=== PATIENT | female | born 1960 | race Caucasian/White ===

== ENCOUNTER 2016-11-15 12:56 | Emergency (ER) | payer BC ==
[2016-11-15 13:02] VITALS: TEMP 97.8; BMI 25.4
[2016-11-15] MEDS ORDERED: KETOROLAC TROMETHAMINE 30 MG/1 ML VIAL IVPUSH ONE (16:26)
[2016-11-15] MEDS ORDERED: SODIUM CHLORIDE 1,000 ML IV STA ×2 (16:26→18:29)
[2016-11-15] MEDS ORDERED: METOCLOPRAMIDE HCL INJECTION 10 MG/2 ML VIAL IVPB ONE (16:26)
[2016-11-15] MEDS ORDERED: KETOROLAC TROMETHAMINE 30 MG/1 ML VIAL ONE (16:36)
[2016-11-15] MEDS ORDERED: METOCLOPRAMIDE HCL INJECTION 10 MG/2 ML VIAL ONE (16:36)
--- NOTE | 2016-11-15 16:49 | PDOC ---
[id number]: MIGRAINE Time Seen by Provider: 11/15/16 16:05 History Source: Patient Exam Limitations: No Limitations - History of Present Illness Initial Comments: 11/15/16 16:25 56-year-old female presents to the ED with complaints of right frontal and right temporal pressure for the past week. Patient states was seen by her ENT specialist Dr. Sanchez and was prescribed Nasonex which she states did not alleviate her symptoms. Patient states has not had a headache to this extent and denies any visual changes but does complain of her head feeling heavy without dizziness, nausea, neck pain, chest pain, or fever. Patient denies history of familial aneurysms, recent travel, recent head injury. Patient does state history of sinus surgery last year to the right side but denies any nasal congestion presently. Timing/Duration: getting worse Severity: moderate Associated Symptoms: reports: headaches Past History - Past Medical History Allergies/Adverse Reactions: Allergies Allergy/AdvReac Type Severity Reaction Status Date / Time No Known Drug Allergies Allergy Verified 11/15/16 13:02 contrast Allergy Severe Rash Uncoded 11/15/16 13:02 Home Medications: Ambulatory Orders Acetaminophen/Caffeine/Butalb [Fioricet -] 1 tab PO Q6H #28 tablet MDD 4 tabs Anemia: No Asthma: No Cancer: No Cardiac Disorders: No CVA: No COPD: No CHF: No Dementia: No Diabetes: No GI Disorders: No Disorders: Yes HTN: No Hypercholesterolemia: No Liver Disease: No Suicide Attempt (Hx): No Seizures: No Thyroid Disease: No - Surgical History Abdominal Surgery: Yes (hernia repair on 04/27/15 in ) Appendectomy: Yes Cholecystectomy: Yes - Immunization History Immunization Up to Date: Yes - Psycho/Social/Smoking Cessation Hx Anxiety: No Suicidal Ideation: No Smoking Status: No Smoking History: Never smoked Have you smoked in the past 12 months: No Number of Cigarettes Smoked Daily: 0 Hx Alcohol Use: No Drug/Substance Use Hx: No Substance Use Type: None Hx Substance Use Treatment: No Patient Lives Alone: No Lives with/in: spouse/SO Review of Systems - Review of Systems Able to Perform ROS?: Yes Constitutional: No: Symptoms Reported HEENTM: No: Symptoms Reported Respiratory: No: Symptoms reported Cardiac (ROS): No: Symptoms Reported ABD/GI: No: Symptoms Reported : No: Symptoms Reported Musculoskeletal: No: Symptoms Reported Integumentary: No: Symptoms Reported Neurological: Yes: Headache Endocrine: No: Symptoms Reported Hematologic/Lymphatic: No: Symptoms Reported *Physical Exam - Vital Signs Last Vital Signs Temp Pulse Resp BP Pulse Ox 97.8 F 100 H 20 134/78 100 11/15/16 12:59 11/15/16 12:59 11/15/16 12:59 11/15/16 12:59 11/15/16 12:59 - Physical Exam General Appearance: Yes: Nourished, Appropriately Dressed. No: Apparent Distress HEENT: positive: EOMI, BATSHEVA, TMs Normal, Pharynx Normal. negative: Pale Conjunctivae, Other (no temporal hypersensitivity with tapping) Neck: positive: Supple Respiratory/Chest: positive: Lungs Clear, Normal Breath Sounds. negative: Respiratory Distress, Accessory Muscle Use Cardiovascular: positive: Regular Rhythm, Tachycardia. negative: Murmur Gastrointestinal/Abdominal: positive: Soft. negative: Tenderness Integumentary: positive: Normal Color, Warm, Moist Neurologic: positive: Motor Strength 5/5 (ambulatory) ED Treatment Course - LABORATORY CBC & Chemistry Diagram: 11/15/16 16:33 11/15/16 16:33 - RADIOLOGY Radiology Studies Ordered: Category Date Time Status HEAD CT WITHOUT CONTRAST [CT] Stat CT Scan 11/15/16 16:26 Ordered Medical Decision Making - Medical Decision Making 11/15/16 16:28 Patient here with complaints of right frontal and temporal pressure for the past week and relieved with Nasonex as prescribed by her ENT specialist suggestive of sinusitis. Patient states history of sinus surgery last year. Patient on exam had no point tenderness or complaints of visual changes/fever. Will rule out intracranial pathology. Patient ordered for labs, Reglan, Toradol IV fluids and head CT. 11/15/16 18:19 Laboratory Tests 11/15/16 16:33 WBC 12.6 H D Hgb 14.6 D Hct 43.6 Plt Count 361 D Neutrophils % 67.7 CT of the head negative for acute findings including sinusitis. Asymmetry evaluate and states pain has subsided slightly but still complaining of right temporal discomfort. Patient will have an ESR added to rule out temporal arteritis and another bag of fluid 11/15/16 18:29 Laboratory Tests 11/15/16 16:33 Sodium 141 Potassium 3.5 Chloride 103 Carbon Dioxide 30 Anion Gap 8 BUN 13 Random Glucose 90 Calcium 9.0 AST 20 D ALT 36 D Albumin 4.3 *DC/Admit/Observation/Transfer Diagnosis at time of Disposition: Headache - Discharge Dispostion Disposition: HOME Condition at time of disposition: Improved - Prescriptions Prescriptions: Acetaminophen/Caffeine/Butalb [Fioricet -] 1 tab PO Q6H #28 tablet MDD 4 tabs - Referrals Referrals: Andrey Dupont MD [Primary Care Provider] - - Patient Instructions Printed Discharge Instructions: DI for Headache Additional Instructions: Please take medication as prescribed and follow up with Dr. Sanchez this week. If you experience any change in vision, weakness, slurred speech, difficulty walking, pain behind one eye, or any new or worsening symptoms, please return to the ER.
[2016-11-15 17:12] LABS: BASOPHIL 0.4 % (0-2.0); EOSINOPHIL 1.4 % (0-4.5); MCH 29.9 pg (25.7-33.7); MCHC 33.5 g/dl (32.0-36.0); MEAN CELL VOLUME 89.4 fl (80-96); MEAN PLT VOLUME 7.6 fl (7.5-11.1); NEUTROPHILS 67.7 % (42.8-82.8); PLATELET COUNT 361 K/MM3 (134-434); RDW 12.5 % (11.6-15.6); WHITE BLOOD COUNT 12.6 K/mm3 (4.0-10.0)
[2016-11-15 18:19] LABS: ALBUMIN 4.3 g/dl (3.4-5.0); ALK PHOS 99 U/L (45-117); ANION GAP 8 (8-16); BILIRUBIN,TOTAL 0.3 mg/dL (0.2-1.0); CO2 30 mmol/L (21-32); CREATININE 0.6 mg/dL (0.55-1.02); GLUCOSE,RANDOM 90 mg/dL (74-106); SGOT/AST 20 U/L (15-37); SGPT/ALT 36 U/L (12-78); TOT PROT 8.1 g/dl (6.4-8.2)
--- NOTE | 2016-11-15 19:40 | PDOC ---
*Physical Exam - Vital Signs Last Vital Signs Temp Pulse Resp BP Pulse Ox 97.8 F 100 H 20 134/78 100 11/15/16 12:59 11/15/16 12:59 11/15/16 12:59 11/15/16 12:59 11/15/16 12:59 - Physical Exam Comments: 11/15/16 19:39 Sign-out received from outgoing ER provider Lluvia. Pt interviewed and examined. Ancillary studies reviewed. Dispo pending ESR to r/o temporal arteritis. Will discharge home with Fioricet and close follow up with neuro. ED Treatment Course - LABORATORY CBC & Chemistry Diagram: 11/15/16 16:33 11/15/16 16:33 - ADDITIONAL ORDERS Additional order review: Laboratory Results 11/15/16 16:33 Sodium 141 Potassium 3.5 Chloride 103 Carbon Dioxide 30 Anion Gap 8 BUN 13 Creatinine 0.6 D Creat Clearance w eGFR > 60 Random Glucose 90 Calcium 9.0 Total Bilirubin 0.3 AST 20 D ALT 36 D Alkaline Phosphatase 99 Total Protein 8.1 Albumin 4.3 11/15/16 16:33 RBC 4.88 MCV 89.4 MCHC 33.5 RDW 12.5 MPV 7.6 Neutrophils % 67.7 Lymphocytes % 24.2 D Monocytes % 6.3 Eosinophils % 1.4 Basophils % 0.4 - Medications Given in the ED: ED Medications Discontinued Medications Generic Name Dose Route Start Last Admin Trade Name Freq PRN Reason Stop Dose Admin Sodium Chloride 1,000 mls @ 1,000 mls/hr 11/15/16 16:26 11/15/16 16:44 Normal Saline - IV 11/15/16 17:25 1,000 mls/hr ASDIR STA Administration Sodium Chloride 1,000 mls @ 1,000 mls/hr 11/15/16 18:29 11/15/16 18:50 Normal Saline - IV 11/15/16 19:28 1,000 mls/hr ASDIR STA Administration Ketorolac Tromethamine 30 mg 11/15/16 16:26 11/15/16 16:44 Toradol Injection - IVPUSH 11/15/16 16:27 30 mg ONCE ONE Administration Metoclopramide HCl 10 mg 11/15/16 16:26 11/15/16 16:44 Reglan Injection - IVPB 11/15/16 16:27 10 mg ONCE ONE Administration *DC/Admit/Observation/Transfer Diagnosis at time of Disposition: Headache Qualifiers: Headache type: other drug induced headache Intractability: not intractable Qualified Code(s): G44.40 - Drug-induced headache, not elsewhere classified, not intractable - Discharge Dispostion Disposition: HOME Condition at time of disposition: Stable Admit: No - Prescriptions Prescriptions: Acetaminophen/Caffeine/Butalb [Fioricet -] 1 tab PO Q6H #28 tablet MDD 4 tabs - Referrals Referrals: Andrey Dupont MD [Primary Care Provider] - - Patient Instructions Printed Discharge Instructions: DI for Headache Additional Instructions: Please take medication as prescribed and follow up with Dr. Sanchez this week. If you experience any change in vision, weakness, slurred speech, difficulty walking, pain behind one eye, or any new or worsening symptoms, please return to the ER.
[2016-11-15 20:55] VITALS: BP 132/70; PULSE 68
== END 2016-11-15 20:54 | disposition home or self-care (01) ==
LOC: JER 12:56
PROC: 3E0333Z Introduction of Anti-inflammatory into Peripheral Vein, Percutaneous Approach (ICD-10-PCS; principal; 2016-11-15)
PROC: 3E033GC Introduction of Other Therapeutic Substance into Peripheral Vein, Percutaneous Approach (ICD-10-PCS; 2016-11-15)
PROC: 3E0337Z Introduction of Electrolytic and Water Balance Substance into Peripheral Vein, Percutaneous Approach (ICD-10-PCS; 2016-11-15)
DX: G44.40 Drug-induced headache, not elsewhere classified, not intractable (principal)
CPT/HCPCS: 36415; 70450-TC; 80053; 85025; 85651; 99283-25

== ENCOUNTER 2017-05-12 10:53 | Emergency (ER) | payer BC ==
[2017-05-12 10:59] VITALS: BMI 25.4
--- NOTE | 2017-05-12 11:46 | PDOC ---
Attending Attestation - Resident Resident Name: Aldo Ledesma - ED Attending Attestation I have performed the following: I have examined & evaluated the patient, The case was reviewed & discussed with the resident, I agree w/resident's findings & plan, Exceptions are as noted - HPI HPI: 05/12/17 14:29 56y F presenting with epigastric pain that is bloating in nature since this morning. pt also endorses mild R sided headache c/.w her migraines. pt notes poor sleep hygeine typically only sleeping 3-4 hrs a night. no associtaed fever/ chills, diaphoersis, cp, sob, leg swelling, numbness/tingling/weakness. pts labs reviewed GENERAL: The patient is awake, alert, and fully oriented, Nontoxic - in no acute distress. HEAD: Normocephalic, atraumatic. EYES: extraocular movements intact, sclera anicteric, conjunctiva clear. ENT: Normal voice, Moist mucous membranes. NECK: Normal range of motion, supple LUNGS: Breath sounds equal, clear to auscultation bilaterally. No wheezes, no rhonchi, no rales. HEART: Regular rate and rhythm, normal S1 and S2 without murmur, rub or gallop. ABDOMEN: Soft, nontender, normoactive bowel sounds. No guarding, no rebound. . No CVA tenderness EXTREMITIES: Normal range of motion, no edema. No clubbing or cyanosis. No cords, erythema, or tenderness. NEUROLOGICAL: No facial assymetry, Normal speech, PSYCH: Normal mood, normal affect. SKIN: Warm, Dry, normal turgor, suspect GERD>gastritis pt feeling improved abd soft nontender. headache> likely migraine pt feeling improved after reglan/fluid hydration will hav pt fu with pmd return precautions were discussed I discussed the physical exam findings, ancillary test results and final diagnoses with the patient. I answered all of the patient's questions. The patient was satisfied with the care received and felt comfortable with the discharge plan and treatment plan. The patient will call their primary care physician within 24 hours to arrange follow-up and will return to the Emergency Department with any new, persistent or worsening symptoms. - Physicial Exam PE: 05/12/17 14:31 see above - Medical Decision Making 05/12/17 14:31 see above
[2017-05-12 12:09] LABS: BASOPHIL 0.9 % (0-2.0); EOSINOPHIL 2.1 % (0-4.5); MCH 30.5 pg (25.7-33.7); MCHC 33.9 g/dl (32.0-36.0); MEAN PLT VOLUME 8.1 fl (7.5-11.1); NEUTROPHILS 57.8 % (42.8-82.8); PLATELET COUNT 267 K/MM3 (134-434); RDW 12.2 % (11.6-15.6); WHITE BLOOD COUNT 7.4 K/mm3 (4.0-10.0)
[2017-05-12] MEDS ORDERED: IBUPROFEN 400 MG TABLET (FP) PO ONE (12:17)
[2017-05-12 12:18] LABS: URINE APPEARANCE CLEAR; URINE BILIRUBIN NEGATIVE (NEGATIVE); URINE BLOOD 1+ (NEGATIVE); URINE COLOR LTYELLOW; URINE GLUCOSE (UA) NEGATIVE (NEGATIVE); URINE KETONE NEGATIVE (NEGATIVE); URINE LEUK ESTERASE NEGATIVE (NEGATIVE); URINE NITRITE NEGATIVE (NEGATIVE); URINE PROTEIN NEGATIVE (NEGATIVE); URINE UROBILINOGEN NEGATIVE mg/dL (0.2-1.0)
[2017-05-12 12:19] LABS: URINE MUCUS RARE; URINE RBC 1 /hpf (0-3)
[2017-05-12 12:24] LABS: ALK PHOS 89 U/L (45-117); ANION GAP 6 (8-16); BILIRUBIN,DIRECT 0.2 mg/dL (0.0-0.2); BILIRUBIN,TOTAL 0.6 mg/dL (0.2-1.0); CALCIUM 9.4 mg/dL (8.5-10.1); CO2 29 mmol/L (21-32); CREATININE 0.6 mg/dL (0.55-1.02); GLUCOSE,RANDOM 94 mg/dL (74-106); SGOT/AST 17 U/L (15-37); SGPT/ALT 24 U/L (12-78); TOT PROT 7.5 g/dl (6.4-8.2)
[2017-05-12] MEDS ORDERED: ONDANSETRON 4 MG/2 ML VIAL IVPUSH ONE (12:59)
[2017-05-12] MEDS ORDERED: ACETAMINOPHEN 1000 MG/100 ML VIAL (NON FORMULARY) IVPB ONE (12:59)
[2017-05-12] MEDS ORDERED: METOCLOPRAMIDE HCL INJECTION 10 MG/2 ML VIAL IVPUSH ONE (13:02)
[2017-05-12] MEDS ORDERED: METOCLOPRAMIDE HCL INJECTION 10 MG/2 ML VIAL ONE (13:09)
[2017-05-12] MEDS ORDERED: ONDANSETRON 4 MG/2 ML VIAL ONE (13:09)
[2017-05-12] MEDS ORDERED: ACETAMINOPHEN INJECTION 100 ML IVPB ONE (13:09)
--- NOTE | 2017-05-12 13:54 | PDOC ---
History of Present Illness - General Chief Complaint: Pain Stated Complaint: ABNORNAL LABS,ABD PAIN,HEADACHE Time Seen by Provider: 05/12/17 11:16 History Source: Patient, Family Exam Limitations: No Limitations - History of Present Illness Initial Comments: 05/12/17 13:49 56F with pmh of cholelythiasis s/p rafa and GERD and migraines presenting with right mid abdominal pain aggravated by meals, with occasional blurry vision and right sided temporal headaches. Currently nauseous but no vomiting. Chronic issue. 05/12/17 14:28 05/12/17 14:50 Past History - Past Medical History Allergies/Adverse Reactions: Allergies Allergy/AdvReac Type Severity Reaction Status Date / Time No Known Drug Allergies Allergy Verified 05/12/17 10:59 contrast Allergy Severe Rash Uncoded 05/12/17 10:59 Home Medications: Ambulatory Orders Acetaminophen/Caffeine/Butalb [Fioricet -] 1 tab PO Q6H #28 tablet MDD 4 tabs Dicyclomine HCl 10 mg PO BID 05/12/17 Etodolac [Etodolac ER] 400 mg PO ASDIR 05/12/17 Nadolol 40 mg PO DAILY 05/12/17 Rizatriptan Benzoate [Rizatriptan] 10 mg PO PRN 05/12/17 Simethicone [Gas Relief] 80 mg PO ASDIR 05/12/17 Anemia: No Asthma: No Cancer: No Cardiac Disorders: No CVA: No COPD: No CHF: No Dementia: No Diabetes: No GI Disorders: No Disorders: Yes HTN: No Hypercholesterolemia: No Liver Disease: No Suicide Attempt (Hx): No Seizures: No Thyroid Disease: No - Surgical History Abdominal Surgery: Yes (hernia repair on 04/27/15 in ) Appendectomy: Yes Cholecystectomy: Yes - Reproductive History Is Patient Now?: No - Immunization History Immunization Up to Date: Yes - Psycho/Social/Smoking Cessation Hx Anxiety: No Suicidal Ideation: No Smoking Status: No Smoking History: Never smoked Have you smoked in the past 12 months: No Number of Cigarettes Smoked Daily: 0 Information on smoking cessation initiated: No Hx Alcohol Use: No Drug/Substance Use Hx: No Substance Use Type: None Hx Substance Use Treatment: No Abd/GI Specific PMHX - Complaint Specific PMHX Gall Bladder Disease: Yes (stones s/p rafa) GERD: Yes Hepatitis: No Irritable Bowel Synd (IBS): No Pancreatitis: (600's lipase on 04/03/17) GI Ulcer Disease: No Review of Systems - Review of Systems Is the patient limited Polish proficient: Yes Constitutional: No: Chills, Diaphoresis, Loss of Appetite, Weakness HEENTM: Yes: Blurred Vision. No: Hearing Loss Respiratory: No: Symptoms reported, Cough, Orthopnea, Shortness of Breath Cardiac (ROS): No: Symptoms Reported ABD/GI: Yes: See HPI, Constipated (since cholecystectomy). No: Symptoms Reported, Abdominal Distended, Abd. Pain w/ defecation : No: Burning, Dysuria, Discharge Musculoskeletal: No: Symptoms Reported Integumentary: No: Symptoms Reported Neurological: Yes: Headache *Physical Exam - Vital Signs Last Vital Signs Temp Pulse Resp BP Pulse Ox 97.9 F 64 18 125/79 100 05/12/17 10:56 05/12/17 10:56 05/12/17 10:56 05/12/17 10:56 05/12/17 10:56 - Physical Exam General Appearance: Yes: Nourished, Appropriately Dressed, Mild Distress HEENT: positive: EOMI, Normal ENT Inspection, Normal Voice Neck: positive: Normal Thyroid. negative: Tender Respiratory/Chest: positive: Normal Breath Sounds. negative: Chest Tender, Respiratory Distress Cardiovascular: positive: Regular Rhythm, Regular Rate, S1, S2 Vascular Pulses: Carotid (R): 2+, Carotid (L): 2+, Dorsalis-Pedis (R): 2+, Doralis-Pedis (L): 2+ Gastrointestinal/Abdominal: positive: Normal Bowel Sounds, Tender, Soft. negative: Rebound ED Treatment Course - LABORATORY CBC & Chemistry Diagram: 05/12/17 12:00 05/12/17 12:00 - ADDITIONAL ORDERS Additional order review: Laboratory Results 05/12/17 05/12/17 12:10 12:00 Sodium 141 Potassium 4.0 Chloride 106 Carbon Dioxide 29 Anion Gap 6 L BUN 12 Creatinine 0.6 D Creat Clearance w eGFR > 60 Random Glucose 94 Calcium 9.4 Total Bilirubin 0.6 D Direct Bilirubin 0.2 AST 17 ALT 24 D Alkaline Phosphatase 89 Total Protein 7.5 Albumin 4.0 Lipase 109 Urine Color Ltyellow Urine Appearance Clear Urine pH 6.0 D Urine Protein Negative Urine Glucose (UA) Negative Urine Ketones Negative Urine Blood 1+ H Urine Nitrite Negative Urine Bilirubin Negative Urine Urobilinogen Negative Ur Leukocyte Esterase Negative Urine RBC 1 Urine WBC None Urine Mucus Rare 05/12/17 12:00 RBC 4.42 MCV 90.0 MCHC 33.9 RDW 12.2 MPV 8.1 Neutrophils % 57.8 Lymphocytes % 31.9 D Monocytes % 7.3 Eosinophils % 2.1 Basophils % 0.9 - RADIOLOGY Radiology Studies Ordered: Category Date Time Status ABDOMEN US -LIMITED [US] Stat Ultrasound 05/12/17 11:50 Completed - Medications Given in the ED: ED Medications Discontinued Medications Generic Name Dose Route Start Last Admin Trade Name Freq PRN Reason Stop Dose Admin Acetaminophen 1,000 mg 05/12/17 12:59 05/12/17 13:08 Ofirmev Injection - IVPB 05/12/17 13:00 1,000 mg ONCE ONE Administration Metoclopramide HCl 10 mg 05/12/17 13:02 05/12/17 13:08 Reglan Injection - IVPUSH 05/12/17 13:03 10 mg ONCE ONE Administration Ondansetron HCl 4 mg 05/12/17 12:59 05/12/17 13:08 Zofran Injection IVPUSH 05/12/17 13:00 4 mg ONCE ONE Administration Medical Decision Making - Medical Decision Making 05/12/17 14:48 56F with pmh of cholelythiasis s/p rafa, GERD and migraines presenting with right mid abdominal pain aggravated by meals, with occasional blurry vision and right sided temporal headaches. CBC, CMP, abd u/s negative. Patient given pain control and reglan. Floyd better. Told to follow up with GI. *DC/Admit/Observation/Transfer Diagnosis at time of Disposition: Gastritis, Migraine - Patient Instructions Printed Discharge Instructions: Gastritis
[2017-05-12 14:36] VITALS: TEMP 98.3
[2017-05-12 15:33] VITALS: BP 103/61; PULSE 56
== END 2017-05-12 15:32 | disposition home or self-care (01) ==
LOC: JER 10:53
PROC: 3E033NZ Introduction of Analgesics, Hypnotics, Sedatives into Peripheral Vein, Percutaneous Approach (ICD-10-PCS; principal; 2017-05-12)
PROC: 3E033GC Introduction of Other Therapeutic Substance into Peripheral Vein, Percutaneous Approach (ICD-10-PCS; 2017-05-12)
DX: K29.70 Gastritis, unspecified, without bleeding (principal); R51 Headache
CPT/HCPCS: 36415; 76705-TC; 80053; 80076; 81003; 81015; 83690; 85025; 86038; 87086; 99283-25

== ENCOUNTER 2019-06-30 19:55 | Emergency (ER) | payer BC ==
[2019-06-30 20:10] VITALS: TEMP 9.1; BMI 26.1
--- NOTE | 2019-06-30 20:40 | PDOC ---
History of Present Illness - General Chief Complaint: Back Pain Stated Complaint: LOWER BACK PAIN X 2 DAYS Time Seen by Provider: 06/30/19 20:28 History Source: Patient - History of Present Illness Initial Comments: 06/30/19 21:06 58 y/o/f here for worsening right sided back pain x1 week. She states the pain is a 10/10, sharp, and radiates to her RUQ. She has taken Tylenol with some improvement. The pain is worse when she coughs and sidebends to the right. She complains of some nausea but no vomiting or diarrhea. She states she had BM today that was normal for her. She denies any dysuria, numbness, pain in her legs, headache, CP, SOB, or other concerns. She denies any falls or trauma. PMHx: kidney stones SHx: cholecystectomy, appendectomy Social: denies tobacco and alcohol use Past History - Past Medical History Allergies/Adverse Reactions: Allergies Allergy/AdvReac Type Severity Reaction Status Date / Time No Known Drug Allergies Allergy Verified 06/30/19 20:07 contrast Allergy Severe Rash Uncoded 06/30/19 20:07 Home Medications: Ambulatory Orders Acetaminophen/Caffeine/Butalb [Fioricet -] 1 tab PO Q6H #28 tablet MDD 4 tabs Dicyclomine HCl 10 mg PO BID 05/12/17 Etodolac [Etodolac ER] 400 mg PO ASDIR 05/12/17 Nadolol 40 mg PO DAILY 05/12/17 Rizatriptan Benzoate [Rizatriptan] 10 mg PO PRN 05/12/17 Simethicone [Gas Relief] 80 mg PO ASDIR 05/12/17 Ibuprofen [Motrin -] 600 mg PO TID #30 tablet 06/30/19 Methocarbamol [Robaxin -] 500 mg PO TID #30 tablet 06/30/19 Anemia: No Asthma: No Cancer: No Cardiac Disorders: No CVA: No COPD: No CHF: No Dementia: No Diabetes: No GI Disorders: No Disorders: Yes HTN: No Hypercholesterolemia: No Liver Disease: No Seizures: No Thyroid Disease: No - Surgical History Abdominal Surgery: Yes (hernia repair on 04/27/15 in ) Appendectomy: Yes Cholecystectomy: Yes - Immunization History Immunization Up to Date: Yes - Suicide/Smoking/Psychosocial Hx Smoking Status: No Smoking History: Never smoked Have you smoked in the past 12 months: No Number of Cigarettes Smoked Daily: 0 Information on smoking cessation initiated: No Hx Alcohol Use: No Drug/Substance Use Hx: No Substance Use Type: None Hx Substance Use Treatment: No Review of Systems - Review of Systems Constitutional: No: Chills, Fever HEENTM: No: Blurred Vision Respiratory: Yes: Cough. No: Shortness of Breath Cardiac (ROS): No: Chest Pain, Lightheadedness ABD/GI: Yes: Other (RUQ pain). No: Diarrhea, Nausea, Vomiting : No: Dysuria, Hematuria Musculoskeletal: Yes: Back Pain Integumentary: No: Rash Neurological: No: Headache, Numbness, Tingling Endocrine: No: Excessive Sweating *Physical Exam - Vital Signs Last Vital Signs Temp Pulse Resp BP Pulse Ox 9.1 F L 87 16 140/68 100 06/30/19 20:07 06/30/19 20:07 06/30/19 20:07 06/30/19 20:07 06/30/19 20:07 - Physical Exam General Appearance: Yes: Nourished, Appropriately Dressed HEENT: positive: EOMI, Normal Voice, Symmetrical Neck: positive: Supple. negative: Tender, Lymphadenopathy (R), Lymphadenopathy (L) Respiratory/Chest: positive: Lungs Clear, Normal Breath Sounds. negative: Accessory Muscle Use Cardiovascular: positive: Regular Rhythm, Regular Rate, S1, S2 Gastrointestinal/Abdominal: positive: Normal Bowel Sounds, Tender (RUQ tenderness to palpation), Soft Musculoskeletal: positive: Other (right paraspinal tenderness to palpation of the mid and lower back) Extremity: positive: Normal Capillary Refill. negative: Swelling Integumentary: positive: Normal Color. negative: Rash Neurologic: positive: Fully Oriented, Alert, Normal Mood/Affect, Motor Strength 5/5 ED Treatment Course - LABORATORY CBC & Chemistry Diagram: 06/30/19 21:20 06/30/19 21:20 Medical Decision Making - Medical Decision Making 06/30/19 21:14 58 y/o/f here for worsening right sided back pain x1 week. She states the pain is a 10/10, sharp, and radiates to her RUQ. On exam there is right paraspinal tenderness to palpation of the mid and lower back, there is also tenderness to palpation over the RUQ. Will evaluate with CBC, CMP, RUQ U/S. Morphine and Robaxan given for pain control. 06/30/19 22:49 Patient given Tramadol for further pain control. Feeling better at this time. RUQ ultrasound negative. CBC, CMP grossly normal. Will discharge patient with Motrin and Robaxan. *DC/Admit/Observation/Transfer Diagnosis at time of Disposition: Back spasm - Discharge Dispostion Disposition: HOME Condition at time of disposition: Good Decision to Admit order: No - Prescriptions Prescriptions: Ibuprofen [Motrin -] 600 mg PO TID #30 tablet Methocarbamol [Robaxin -] 500 mg PO TID #30 tablet - Referrals Referrals: Andrey Dupont MD [Primary Care Provider] - - Patient Instructions Printed Discharge Instructions: DI for Back Spasm Additional Instructions: If you have worsening pain, difficulty walking, numbness or other concerns return to the ER. Please follow up with your PMD in the next week. Print Language: NAURUAN - Post Discharge Activity
[2019-06-30] MEDS ORDERED: METHOCARBAMOL 500 MG TABLET PO ONE (21:03)
[2019-06-30] MEDS ORDERED: morphine CARPU-JECT 2 MG/1 ML DISP.SYRIN IVPUSH ONE (21:03)
[2019-06-30] MEDS ORDERED: SODIUM CHLORIDE 0.9% 500 ML INFUS.BAG IV ONE (21:04)
[2019-06-30] MEDS ORDERED: METHOCARBAMOL 500 MG TABLET ONE (21:10)
[2019-06-30] MEDS ORDERED: MORPHINE SULFATE 2 MG/ML VIAL ONE (21:10)
[2019-06-30 21:37] LABS: BASO % 0.6 % (0-2.0); EOS % 2.8 % (0-4.5); HEMATOCRIT 41.1 % (32.4-45.2); HEMOGLOBIN 13.6 GM/dL (10.7-15.3); LYMPH % 34.5 % (8-40); MCH 30.2 pg (25.7-33.7); MCHC 33.2 g/dl (32.0-36.0); MEAN CELL VOLUME 91.2 fl (80-96); MEAN PLT VOLUME 7.2 fl (7.5-11.1); MONO % 7.7 % (3.8-10.2); NEUT % 54.4 % (42.8-82.8); PLATELET COUNT 350 K/MM3 (134-434); RBC 4.51 M/mm3 (3.60-5.2); RDW 12.5 % (11.6-15.6); WHITE BLOOD COUNT 9.2 K/mm3 (4.0-10.0)
--- NOTE | 2019-06-30 21:42 | PDOC ---
Documentation entered by Stan Pemberton SCRIBE, acting as scribe for Jennifer Brooks MD. Jennifer Brooks MD: This documentation has been prepared by the Nilay fenton Daniel, SCRIBE, under my direction and personally reviewed by me in its entirety. I confirm that the documentation accurately reflects all work, treatment, procedures, and medical decision making performed by me. Attending Attestation - Resident Resident Name: GrahamFlorinaradhagreg S - ED Attending Attestation I have performed the following: I have examined & evaluated the patient, The case was reviewed & discussed with the resident, I agree w/resident's findings & plan - HPI HPI: 06/30/19 20:57 The patient is a 58 year old female with no past medical history here today for evaluation of back pain. The patient reports that she has had 1 week of right sided lower back pain that has been worsening over the past 2 days and is worse with walking, bending over, and coughing (patient has had a cough since 05/10). She states that it is a 10/10 and radiates from T7-9 to her right upper quadrant. She denies any trauma and states that she had a bowel movement today. Patient has been taking tylenol for the pain. Patient denies headache, lightheadedness. Denies fever, chills. Denies chest pain, shortness of breath. Denies nausea, vomiting, diarrhea. Denies urinary symptoms. Denies neurologic symptoms. Allergies: NKDA, contrast Social history: denies tobacco, illicit drug, and alcohol use. Surgical history: Cholecystectomy, appendectomy, kidney stone removal. PCP: Andrey Dupont - Physicial Exam PE: 06/30/19 21:19 GENERAL: Awake, alert, and fully oriented, in no acute distress HEAD: No signs of trauma EYES: PERRLA, EOMI, sclera anicteric, conjunctiva clear ENT: Auricles normal inspection, hearing grossly normal, nares patent, oropharynx clear without exudates. Moist mucosa NECK: Normal ROM, supple, no lymphadenopathy, JVD, or masses LUNGS: Breath sounds equal, clear to auscultation bilaterally. No wheezes, and no crackles HEART: Regular rate and rhythm, normal S1 and S2, no murmurs, rubs or gallops ABDOMEN: +right upper quadrant tenderness. Soft, normoactive bowel sounds. No guarding, no rebound. No masses BACK: no spinal tenderness. EXTREMITIES: Normal range of motion, no edema. No clubbing or cyanosis. No cords, erythema, or tenderness NEUROLOGICAL: Cranial nerves II through XII grossly intact. Normal speech, normal gait SKIN: Warm, Dry, normal turgor, no rashes or lesions noted. No skin changes. - Medical Decision Making 06/30/19 21:06 Pt has minimal obstructive airway disease on PFTs done in the past month. CT scan done shows interstitial lung disease that is chronic. She also has notmal echocardiogram that was done in the last month. She has epigastric pain as well as mid back pain that wraps around her RUQ; she had a GB removal years ago, and may have choledocholithiasis at this time. 06/30/19 22:11 All labs are normal; I am awaiting sono reading; it looks normal to me. Pt will be given IV toradol, now that I know she will not require any procedures. 06/30/19 22:43 Patient Name: RADHA MARTINEZ THIS IS A PRELIMINARY REPORT FROM [facility] EXAM: Right upper quadrant ultrasound IMAGES: 35 DATE OF EXAM: 2019-06-30 21:38:46 REASON FOR EXAM: Rule out common bile duct stone COMPARISON: None. FINDINGS: Prior cholecystectomy. Common bile duct normal in diameter at 5 mm. No visible common bile duct stone. No evidence of biliary obstruction. Limited evaluation of the pancreatic head and body is grossly unremarkable. The liver is unremarkable and without enlargement. The right kidney is within normal limits without hydronephrosis. Pt will be sent home with Motrin and Robaxin for muscle spasm. She can follow with her PMD as needed.
[2019-06-30 22:00] LABS: ALBUMIN 4.2 g/dl (3.4-5.0); BILIRUBIN,TOTAL 0.3 mg/dL (0.2-1); BLOOD UREA NITROGEN 11.6 mg/dL (7-18); CALCIUM 9.8 mg/dL (8.5-10.1); CREATININE 0.8 mg/dL (0.55-1.3); POTASSIUM 3.9 mmol/L (3.5-5.1); TOT PROT 8.1 g/dl (6.4-8.2)
[2019-06-30] MEDS ORDERED: KETOROLAC TROMETHAMINE 30 MG/1 ML VIAL IVPUSH ONE (22:06)
[2019-06-30] MEDS ORDERED: KETOROLAC TROMETHAMINE 30 MG/1 ML VIAL ONE (22:18)
[2019-06-30 22:32] VITALS: BP 124/68; PULSE 64
== END 2019-06-30 23:04 | disposition home or self-care (01) ==
LOC: JER 19:55
PROC: 3E033NZ Introduction of Analgesics, Hypnotics, Sedatives into Peripheral Vein, Percutaneous Approach (ICD-10-PCS; principal; 2019-06-30)
PROC: 3E0333Z Introduction of Anti-inflammatory into Peripheral Vein, Percutaneous Approach (ICD-10-PCS; 2019-06-30)
DX: M62.830 Muscle spasm of back (principal)
CPT/HCPCS: 36415; 76705-TC; 80053; 83690; 85025; 99281-25

== ENCOUNTER 2020-10-30 04:34 | Day surgery (SDC) | payer BC ==
[2020-10-28 09:53] VITALS: BMI 26.1
[2020-10-30] MEDS ORDERED: BUPIVACAINE HCL/PF 0.5% (5 MG/ML) 30 ML VIAL IJ ONE (13:43)
[2020-10-30 14:14] VITALS: BP 127/63; PULSE 18; TEMP 97.5
== END 2020-10-30 14:25 | disposition home or self-care (01) ==
LOC: JASU-SURG 04:34
PROVIDERS: ATTEND Pain Medicine Pain Medicine
PROC: 3E0T33Z Introduction of Anti-inflammatory into Peripheral Nerves and Plexi, Percutaneous Approach (ICD-10-PCS; 2020-10-30)
PROC: 3E0T3BZ Introduction of Anesthetic Agent into Peripheral Nerves and Plexi, Percutaneous Approach (ICD-10-PCS; principal; 2020-10-30 14:30)
DX: M47.812 Spondylosis without myelopathy or radiculopathy, cervical region (principal)
CPT/HCPCS: 76000-TC-FY

== ENCOUNTER 2020-12-04 04:22 | Day surgery (SDC) | payer BC ==
[2020-12-02 17:03] VITALS: BMI 27.1
[2020-12-04] MEDS ORDERED: DEXAMETHASONE SOD PHOSPHATE/PF 10 MG/ML SDV ONE (07:30)
[2020-12-04] MEDS ORDERED: LIDOCAINE HCL/PF 1% SDV 5ML VIAL ONE (07:30)
[2020-12-04] MEDS ORDERED: BUPIVACAINE HCL/PF 0.75% 10 ML VIAL ONE (10:10)
[2020-12-04] MEDS ORDERED: BUPIVACAINE HCL/PF 0.5% (5MG/ML) 10 ML VIAL IJ ONE ×2 (10:17)
[2020-12-04 11:02] VITALS: BP 130/77; PULSE 66; TEMP 97.6
== END 2020-12-04 11:13 | disposition home or self-care (01) ==
LOC: JASU-SURG 04:22
PROVIDERS: ATTEND Pain Medicine Pain Medicine
PROC: BR14ZZZ Fluoroscopy of Cervical Facet Joint(s) (ICD-10-PCS; 2020-12-04)
PROC: 3E0T3BZ Introduction of Anesthetic Agent into Peripheral Nerves and Plexi, Percutaneous Approach (ICD-10-PCS; principal; 2020-12-04 10:00)
DX: M47.812 Spondylosis without myelopathy or radiculopathy, cervical region (principal)
CPT/HCPCS: 76000-TC-FY

== ENCOUNTER 2021-04-14 12:23 | Emergency (ER) | payer BC ==
[2021-04-14 12:29] VITALS: BMI 25.7
[2021-04-14] MEDS ORDERED: FAMOTIDINE 20 MG/50 ML IVPB 20 MG/50 ML MG IVPB ONE ×2 (13:33→13:43)
[2021-04-14] MEDS ORDERED: ACETAMINOPHEN 1000 MG/100 ML VIAL (NON FORMULARY) IVPB ONE (13:33)
[2021-04-14] MEDS ORDERED: ONDANSETRON 4 MG/2 ML VIAL IVPUSH ONE (13:34)
[2021-04-14] MEDS ORDERED: ACETAMINOPHEN INJECTION 100 ML IVPB ONE (13:42)
[2021-04-14 13:43] LABS: BASO % 0.9 % (0-2.0); EOS % 2.8 % (0-4.5); HEMOGLOBIN 14.8 GM/dL (10.7-15.3); LYMPH % 36.4 % (8-40); MCH 30.6 pg (25.7-33.7); MCHC 34.4 g/dl (32.0-36.0); MEAN CELL VOLUME 88.8 fl (80-96); MEAN PLT VOLUME 7.6 fl (7.5-11.1); MONO % 8.5 % (3.8-10.2); NEUT % 51.4 % (42.8-82.8); PH,URINE 7.5 (5.0-8.0); PLATELET COUNT 343 10^3/uL (134-434); RBC 4.84 M/mm3 (3.60-5.2); RDW 12.7 % (11.6-15.6); URINE APPEARANCE CLEAR; URINE BILIRUBIN NEGATIVE (NEGATIVE); URINE COLOR YELLOW; URINE GLUCOSE (UA) NEGATIVE (NEGATIVE); URINE KETONE NEGATIVE (NEGATIVE); URINE LEUK ESTERASE NEGATIVE (NEGATIVE); URINE NITRITE NEGATIVE (NEGATIVE); URINE PROTEIN NEGATIVE (NEGATIVE); URINE UROBILINOGEN 0.2 mg/dL (0.2-1.0); WHITE BLOOD COUNT 5.6 K/mm3 (4.0-10.0)
[2021-04-14] MEDS ORDERED: ONDANSETRON 4 MG/2 ML VIAL ONE (13:43)
[2021-04-14 14:02] LABS: CHLORIDE 104 mmol/L (98-107); SODIUM 135 mmol/L (136-145)
[2021-04-14 14:05] LABS: BLOOD UREA NITROGEN 11.6 mg/dL (7-18); CALCIUM 9.5 mg/dL (8.5-10.1); CO2 27 mmol/L (21-32); GLUCOSE,RANDOM 69 mg/dL (74-106); LIPASE 79 U/L (73-393)
[2021-04-14 14:08] LABS: CREATININE 0.8 mg/dL (0.55-1.3); SGOT/AST 83 U/L (15-37)
[2021-04-14 14:10] LABS: BILIRUBIN,TOTAL 0.8 mg/dL (0.2-1); TOT PROT 9.1 g/dl (6.4-8.2)
[2021-04-14 14:11] LABS: ALK PHOS 131 U/L (45-117)
[2021-04-14 14:22] LABS: ANION GAP 4 MMOL/L (8-16); SGPT/ALT 68 U/L (13-61)
[2021-04-14] MEDS ORDERED: SUCRALFATE 1 GM TABLET (FP) PO ONE (14:26)
[2021-04-14] MEDS ORDERED: SUCRALFATE 1 GM TABLET (FP) ONE (14:31)
[2021-04-14 18:14] VITALS: BP 142/68; PULSE 72; TEMP 98.2
== END 2021-04-14 18:18 | disposition home or self-care (01) ==
LOC: JER 12:23
PROC: 3E0333Z Introduction of Anti-inflammatory into Peripheral Vein, Percutaneous Approach (ICD-10-PCS; principal; 2021-04-14)
PROC: 3E033GC Introduction of Other Therapeutic Substance into Peripheral Vein, Percutaneous Approach (ICD-10-PCS; 2021-04-14)
PROC: 3E033GC Introduction of Other Therapeutic Substance into Peripheral Vein, Percutaneous Approach (ICD-10-PCS; 2021-04-14)
DX: R10.13 Epigastric pain (principal)
CPT/HCPCS: 36415; 71046-TC-FY; 80053; 81003; 83690; 84132; 84484; 85025; 87086; 93005; 93010; 99285-25; J0131

== ENCOUNTER 2021-04-16 04:37 | Day surgery (SDC) | payer BC ==
[2021-04-15 08:47] VITALS: BMI 27.1
[~2021-04-16 04:37] MED LIST: IOHEXOL 180 MG/1 ML ML IJ ONE; LIDOCAINE 1% P/F 10 MG/ML VIAL INF ONE
[2021-04-16] MEDS ORDERED: BUPIVACAINE HCL/PF 0.75% 10 ML VIAL ONE (07:54)
[2021-04-16] MEDS ORDERED: DEXAMETHASONE SOD PHOSPHATE 10 MG/1 ML VIAL ONE (07:54)
[2021-04-16] MEDS ORDERED: BUPIVACAINE HCL/PF 0.5% (5MG/ML) 10 ML VIAL ONE (07:54)
[2021-04-16 14:32] VITALS: BP 141/66; PULSE 75; TEMP 97.8
== END 2021-04-16 16:41 | disposition home or self-care (01) ==
LOC: JASU-SURG 04:37
PROVIDERS: ATTEND Pain Medicine Pain Medicine
DX: Z53.8 Procedure and treatment not carried out for other reasons (principal)
CPT/HCPCS: J1100

== ENCOUNTER 2021-04-23 05:15 | Day surgery (SDC) | payer BC ==
[2021-04-22 10:29] VITALS: BMI 27.1
[2021-04-23] MEDS ORDERED: BUPIVACAINE HCL/PF 0.5% (5MG/ML) 10 ML VIAL ONE (07:15)
[2021-04-23] MEDS ORDERED: LIDOCAINE HCL/PF 1% SDV 5ML VIAL ONE (07:16)
[2021-04-23 11:20] VITALS: PULSE 68
[2021-04-23] MEDS ORDERED: LIDOCAINE HCL 1% PRESERVATIVE FREE - 30ML VIAL IJ ONE (13:13)
[2021-04-23] MEDS ORDERED: BUPIVACAINE HCL/PF 0.5% (5MG/ML) 10 ML VIAL IJ ONE ×2 (13:14→13:22)
[2021-04-23 14:24] VITALS: BP 141/75; TEMP 98
== END 2021-04-23 14:05 | disposition home or self-care (01) ==
LOC: JASU-SURG 05:15
PROVIDERS: ATTEND Pain Medicine Pain Medicine
PROC: 3E0T3TZ Introduction of Destructive Agent into Peripheral Nerves and Plexi, Percutaneous Approach (ICD-10-PCS; principal; 2021-04-23 12:45)
DX: M47.812 Spondylosis without myelopathy or radiculopathy, cervical region (principal)
CPT/HCPCS: 76000-TC-FY

== ENCOUNTER 2022-08-04 10:31 | Emergency (ER) | payer BC, OTHER ==
[2022-08-04 10:56] VITALS: BP 151/77; PULSE 91; RESP 18; TEMP 98.3; BMI 27.1
[2022-08-04] MEDS ORDERED: ACETAMINOPHEN 500 MG TABLET (FP) PO ONE (11:20)
[2022-08-04] MEDS ORDERED: ACETAMINOPHEN 500 MG TABLET (FP) ONE (12:50)
== END 2022-08-04 14:39 | disposition home or self-care (01) ==
LOC: JER 10:31
DX: U07.1 COVID-19 (principal)
CPT/HCPCS: 0241U-QW; 71046-TC-FY; 99284-25

== ENCOUNTER 2022-09-30 04:23 | Day surgery (SDC) | payer BC ==
[2022-09-28 15:32] VITALS: BMI 27.4
[2022-09-30] MEDS ORDERED: LIDOCAINE HCL 2% JELLY 11 ML TP ONE (13:41)
[2022-09-30] MEDS ORDERED: HEPARIN NA (PORCINE) 5,000 UNITS/ML 1ML VIAL ONE (13:41)
[2022-09-30] MEDS ORDERED: LIDOCAINE HCL 1%, 10 MG/ML (20ML VIAL) ONE (13:41)
[2022-09-30] MEDS ORDERED: PROPOFOL 20 ML ONE (13:54)
[2022-09-30] MEDS ORDERED: LIDOCAINE HCL/PF 2% SDV 5ML VIAL ONE (13:54)
[2022-09-30] MEDS ORDERED: DEXAMETHASONE SOD PHOSPHATE 4 MG/1 ML VIAL ONE (13:54)
[2022-09-30] MEDS ORDERED: ONDANSETRON 4 MG/2 ML VIAL ONE (13:54)
[2022-09-30] MEDS ORDERED: FENTANYL CITRATE/PF 50 MCG/ML VIAL ONE (13:55)
[2022-09-30] MEDS ORDERED: oxyCODONE HCL 5 MG TABLET PO PRN ×2 (14:01)
[2022-09-30] MEDS ORDERED: ACETAMINOPHEN 1000 MG/100 ML BAG IVPB PRN (14:01)
[2022-09-30] MEDS ORDERED: PROMETHAZINE HCL 25 MG/1 ML VIAL IVPUSH PRN (14:01)
[2022-09-30] MEDS ORDERED: FENTANYL CITRATE/PF 50 MCG/ML VIAL IVPUSH PRN (14:01)
[2022-09-30] MEDS ORDERED: ONDANSETRON 4 MG/2 ML VIAL IVPUSH PRN (14:01)
[2022-09-30] MEDS ORDERED: LACTATED RINGERS SOLUTION 1,000 ML IV SCH (14:15)
[2022-09-30] MEDS ORDERED: ceFAZolin SODIUM 1 GM VIAL ONE (14:26)
[2022-09-30] MEDS ORDERED: IBUPROFEN 800 MG/8 ML IJ IVPB SCH (14:30)
[2022-09-30] MEDS ORDERED: DEXTROSE 5%-0.45% SALINE 1,000 ML IV SCH (14:30)
[2022-09-30] MEDS ORDERED: ceFAZolin SODIUM 1 GM VIAL IVPB ONE ×3 (14:37)
[2022-09-30] MEDS ORDERED: IBUPROFEN 800 MG/8 ML IJ IVPB ONE ×2 (15:11→15:16)
[2022-09-30 16:20] VITALS: RESP 20; TEMP 97.2
[2022-09-30 17:01] VITALS: BP 135/73; PULSE 83
== END 2022-09-30 16:53 | disposition home or self-care (01) ==
LOC: JASU-SURG 04:23
PROVIDERS: ATTEND Urology
PROC: 0T7B8ZZ Dilation of Bladder, Via Natural or Artificial Opening Endoscopic (ICD-10-PCS; principal; 2022-09-30 14:00)
DX: N30.10 Interstitial cystitis (chronic) without hematuria (principal)
CPT/HCPCS: 94760; J1644

== ENCOUNTER 2023-04-04 03:48 | Inpatient (IN) | payer BC ==
[2023-04-03 09:37] VITALS: BMI 26.1
[2023-04-04] MEDS ORDERED: ceFAZolin SODIUM 1 GM VIAL ONE ×2 (07:15→08:26)
[2023-04-04] MEDS ORDERED: THROMBIN (BOVINE) 5,000 UNIT VIAL TP ONE (07:15)
[2023-04-04] MEDS ORDERED: MIDAZOLAM HCL 2 MG/2 ML SINGLE DOSE VIAL ONE (07:17)
[2023-04-04] MEDS ORDERED: SUCCINYLCHOLINE CHLORIDE 200 MG/10 ML SYRINGE ONE (07:17)
[2023-04-04] MEDS ORDERED: LIDOCAINE HCL/PF 2% SDV 5ML VIAL ONE (07:17)
[2023-04-04] MEDS ORDERED: PROPOFOL 80 ML ONE (07:17)
[2023-04-04] MEDS ORDERED: SCOPOLAMINE HYDROBROMIDE 1 PATCH PATCH.TD72 ONE (07:33)
[2023-04-04] MEDS ORDERED: DEXAMETHASONE SOD PHOSPHATE 4 MG/1 ML VIAL ONE (08:26)
[2023-04-04] MEDS ORDERED: ceFAZolin SODIUM 1 GM VIAL IVPB ONE (08:50)
[2023-04-04] MEDS ORDERED: PROPOFOL 60 ML ONE (09:20)
[2023-04-04] MEDS ORDERED: HYDROmorphone HCl 2 MG/ML VIAL ONE (10:16)
[2023-04-04] MEDS ORDERED: ONDANSETRON 4 MG/2 ML VIAL ONE (10:48)
[2023-04-04] MEDS ORDERED: PROMETHAZINE HCL 25 MG/1 ML VIAL IVPB PRN (11:19)
[2023-04-04] MEDS ORDERED: ONDANSETRON 4 MG/2 ML VIAL IVPUSH PRN (11:19)
[2023-04-04] MEDS ORDERED: ACETAMINOPHEN 1000 MG/100 ML BAG IVPB ONE (11:20)
[2023-04-04] MEDS ORDERED: LACTATED RINGERS SOLUTION 1,000 ML IV SCH (11:30)
[2023-04-04] MEDS ORDERED: ACETAMINOPHEN INJECTION 100 ML IVPB ONE (12:03)
[2023-04-04] MEDS ORDERED: diphenhydrAMINE HCL 25 MG CAPSULE (FP) PO PRN (14:37)
[2023-04-04] MEDS ORDERED: morphine CARPU-JECT 4 MG/1 ML DISP.SYRIN IVPUSH PRN (14:37)
[2023-04-04] MEDS ORDERED: oxyCODONE HCL 5 MG TABLET PO PRN ×2 (14:37)
[2023-04-04 16:23] VITALS: RESP 18
[2023-04-04] MEDS: LACTATED RINGERS SOLUTION 1,000 ML/1,000 ML INFUS.BAG IV SCH (16:27)
[2023-04-04] MEDS: morphine SULFATE 4 MG/ML VIAL IVPUSH PRN (21:35)
[2023-04-04] MEDS: CEFAZOLIN 1 GM in DEXTROSE 5%-WATER - 50 ML IVPB SCH (21:45)
[2023-04-04] MEDS: DOCUSATE SODIUM 100 MG CAPSULE (FP) PO SCH (23:06)
[2023-04-04] MEDS: HEPARIN NA (PORCINE) 5,000 UNITS/ML 1ML VIAL SQ SCH (23:06)
[2023-04-05] MEDS: CEFAZOLIN 1 GM in DEXTROSE 5%-WATER - 50 ML IVPB SCH ×2 (05:28→14:23)
[2023-04-05] MEDS: HEPARIN NA (PORCINE) 5,000 UNITS/ML 1ML VIAL SQ SCH ×2 (05:35→14:24)
[2023-04-05] MEDS: DOCUSATE SODIUM 100 MG CAPSULE (FP) PO SCH ×2 (05:35→14:24)
[2023-04-05] MEDS: morphine SULFATE 4 MG/ML VIAL IVPUSH PRN (07:32)
[2023-04-05] MEDS ORDERED: FERROUS SO4 325 MG TABLET (FP) PO SCH (08:00)
[2023-04-05 08:56] LABS: HEMATOCRIT 35.9 % (32.4-45.2); HEMOGLOBIN 12.4 GM/dL (10.7-15.3); MCH 30.2 pg (25.7-33.7); MCHC 34.4 g/dl (32.0-36.0); MEAN CELL VOLUME 87.8 fl (80-96); MEAN PLT VOLUME 7.6 fl (7.5-11.1); PLATELET COUNT 319 10^3/uL (134-434); RBC 4.09 M/mm3 (3.60-5.2); RDW 12.9 % (11.6-15.6); WHITE BLOOD COUNT 10.9 K/mm3 (4.0-10.0)
[2023-04-05 09:12] LABS: POTASSIUM 3.6 mmol/L (3.5-5.1)
[2023-04-05 09:21] LABS: BLOOD UREA NITROGEN 8.4 mg/dL (7-18)
[2023-04-05 09:24] LABS: CREATININE 0.6 mg/dL (0.55-1.3)
[2023-04-05] MEDS ORDERED: FOLIC ACID 1 MG TABLET (FP) PO SCH (10:00)
[2023-04-05] MEDS ORDERED: ASPIRIN COATED 81 MG TABLET.EC PO SCH (10:00)
[2023-04-05] MEDS ORDERED: PATIENT'S OWN MEDICATION (NON-FORMULARY) (Linaclotide [Linzess] 145 MCG Capsule) PO SCH (10:00)
[2023-04-05 14:09] VITALS: BP 131/73; PULSE 76; TEMP 97.8
[2023-04-05] MEDS: LACTATED RINGERS SOLUTION 1,000 ML/1,000 ML INFUS.BAG IV SCH (17:03)
[2023-04-05] MEDS: PATIENT'S OWN MEDICATION (NON-FORMULARY) (Pentosan Polysulfate Sodium [Elmiron] 100 MG Cap PO SCH ×2 (17:06→17:07)
== END 2023-04-05 17:56 | disposition home or self-care (01) | DRG 29 ==
LOC: J2C 03:48 → J8W 15:54
PROVIDERS: ADMIT Neurological Surgery; ATTEND Neurological Surgery
PROC: 0RB30ZZ Excision of Cervical Vertebral Disc, Open Approach (ICD-10-PCS; 2023-04-04)
PROC: 00NW0ZZ Release Cervical Spinal Cord, Open Approach (ICD-10-PCS; 2023-04-04)
PROC: 4A1004G Monitoring of Central Nervous Electrical Activity, Intraoperative, Open Approach (ICD-10-PCS; 2023-04-04)
PROC: 0RG20A0 Fusion of 2 or more Cervical Vertebral Joints with Interbody Fusion Device, Anterior Approach, Anterior Column, Open Approach (ICD-10-PCS; principal; 2023-04-04 08:00)
DX: M54.12 Radiculopathy, cervical region (principal); G95.89 Other specified diseases of spinal cord; M50.022 Cervical disc disorder at C5-C6 level with myelopathy; M40.292 Other kyphosis, cervical region
CPT/HCPCS: 36415; 72040-TC; 76000-TC-FY; 80048; 85027; 86850; 86900; 86901; 94760; 97116-GP; 97161-GP; C1713; C1889; J1644

== ENCOUNTER 2023-10-03 04:22 | Day surgery (SDC) | payer BC ==
[2023-10-02 12:17] VITALS: BMI 25.4
[2023-10-03] MEDS ORDERED: BUPIVACAINE HCL/PF 0.75% 10 ML VIAL ONE ×2 (07:22→12:08)
[2023-10-03] MEDS ORDERED: LIDOCAINE HCL/PF 1% SDV 5ML VIAL ONE (07:22)
[2023-10-03 09:05] VITALS: RESP 20
[2023-10-03] MEDS ORDERED: BUPIVACAINE HCL/PF 0.75% 10 ML VIAL NR ONE ×2 (12:12→12:14)
[2023-10-03] MEDS ORDERED: LIDOCAINE 1% P/F 10 MG/ML VIAL INF ONE (12:12)
[2023-10-03 13:34] VITALS: BP 134/69; PULSE 61; TEMP 98.3
[2023-10-03] MEDS ORDERED: ACETAMINOPHEN 500 MG TABLET (FP) PO PRN (22:36)
== END 2023-10-03 12:55 | disposition home or self-care (01) ==
LOC: JASU-SURG 04:22
PROVIDERS: ATTEND Pain Medicine Pain Medicine
PROC: 3E0T33Z Introduction of Anti-inflammatory into Peripheral Nerves and Plexi, Percutaneous Approach (ICD-10-PCS; 2023-10-03)
PROC: 3E0T3BZ Introduction of Anesthetic Agent into Peripheral Nerves and Plexi, Percutaneous Approach (ICD-10-PCS; principal; 2023-10-03 10:45)
DX: M47.816 Spondylosis without myelopathy or radiculopathy, lumbar region (principal)
CPT/HCPCS: 76000-TC-FY

== ENCOUNTER 2023-10-06 04:32 | Day surgery (SDC) | payer BC ==
[2023-10-04 13:23] VITALS: BMI 25.4
[2023-10-06] MEDS ORDERED: LIDOCAINE HCL 1%, 10 MG/ML (20ML VIAL) ONE (10:50)
[2023-10-06] MEDS ORDERED: LIDOCAINE HCL 2% JELLY 11 ML TP ONE (10:50)
[2023-10-06] MEDS ORDERED: HEPARIN NA (PORCINE) 5,000 UNITS/ML 1ML VIAL ONE (10:51)
[2023-10-06] MEDS ORDERED: SODIUM BICARBONATE 8.4% 50 MEQ/50 ML DISP.SYRIN ONE (10:54)
[2023-10-06] MEDS ORDERED: MIDAZOLAM HCL 2 MG/2 ML SINGLE DOSE VIAL ONE (14:19)
[2023-10-06] MEDS ORDERED: PROPOFOL 20 ML ONE (14:19)
[2023-10-06] MEDS ORDERED: LIDOCAINE HCL/PF 2% SDV 5ML VIAL ONE (14:19)
[2023-10-06] MEDS ORDERED: SCOPOLAMINE HYDROBROMIDE 1 PATCH PATCH.TD72 ONE (14:30)
[2023-10-06] MEDS ORDERED: DEXTROSE 5%-0.45% SALINE 1,000 ML IV SCH (14:45)
[2023-10-06] MEDS ORDERED: ACETAMINOPHEN 1000 MG/100 ML BAG IVPB ONE ×2 (14:45→15:20)
[2023-10-06] MEDS ORDERED: ceFAZolin SODIUM 1 GM VIAL ONE (14:48)
[2023-10-06] MEDS ORDERED: DEXAMETHASONE SOD PHOSPHATE 4 MG/1 ML VIAL ONE (14:48)
[2023-10-06] MEDS ORDERED: ONDANSETRON 4 MG/2 ML VIAL ONE (14:50)
[2023-10-06] MEDS ORDERED: KETOROLAC TROMETHAMINE 30 MG/1 ML VIAL ONE (14:50)
[2023-10-06] MEDS ORDERED: PROMETHAZINE HCL 25 MG/1 ML VIAL IVPB PRN (15:14)
[2023-10-06] MEDS ORDERED: ONDANSETRON 4 MG/2 ML VIAL IVPUSH PRN (15:14)
[2023-10-06] MEDS ORDERED: oxyCODONE HCL 5 MG TABLET PO PRN ×2 (15:14)
[2023-10-06] MEDS ORDERED: LACTATED RINGERS SOLUTION 1,000 ML IV SCH (15:15)
[2023-10-06] MEDS ORDERED: ACETAMINOPHEN INJECTION 100 ML IVPB ONE (15:15)
[2023-10-06 16:40] VITALS: RESP 18
[2023-10-06 17:14] VITALS: BP 131/61; PULSE 96; TEMP 98
== END 2023-10-06 17:20 | disposition home or self-care (01) ==
LOC: JASU-SURG 04:32
PROVIDERS: ATTEND Urology
PROC: 0T7B8DZ Dilation of Bladder with Intraluminal Device, Via Natural or Artificial Opening Endoscopic (ICD-10-PCS; principal; 2023-10-06 14:30)
DX: N30.10 Interstitial cystitis (chronic) without hematuria (principal)
CPT/HCPCS: 94760; J1644

== ENCOUNTER 2023-10-27 04:20 | Day surgery (SDC) | payer BC ==
[2023-10-24 09:48] VITALS: BMI 26.1
[~2023-10-27 04:20] MED LIST changes: +BUPIVACAINE HCL/PF 0.75% 10 ML VIAL NR ONE; -IOHEXOL 180 MG/1 ML ML IJ ONE; -LIDOCAINE 1% P/F 10 MG/ML VIAL INF ONE; +LIDOCAINE HCL 1% PRESERVATIVE FREE - 30ML VIAL IJ ONE
[2023-10-27] MEDS ORDERED: BUPIVACAINE HCL/PF 0.75% 10 ML VIAL ONE (07:10)
[2023-10-27] MEDS ORDERED: LIDOCAINE HCL/PF 1% SDV 5ML VIAL ONE (07:10)
[2023-10-27 08:06] VITALS: RESP 18
[2023-10-27] MEDS ORDERED: LIDOCAINE HCL 1% PRESERVATIVE FREE - 30ML VIAL IJ ONE (10:03)
[2023-10-27] MEDS ORDERED: BUPIVACAINE HCL/PF 0.75% 10 ML VIAL NR ONE (10:06)
[2023-10-27 10:38] VITALS: BP 140/71; PULSE 61; TEMP 97.2
[2023-10-27] MEDS ORDERED: ACETAMINOPHEN 500 MG TABLET (FP) PO PRN (10:50)
== END 2023-10-27 10:40 | disposition home or self-care (01) ==
LOC: JASU-SURG 04:20
PROVIDERS: ATTEND Pain Medicine Pain Medicine
PROC: 3E0T3BZ Introduction of Anesthetic Agent into Peripheral Nerves and Plexi, Percutaneous Approach (ICD-10-PCS; principal; 2023-10-27 09:15)
DX: M47.816 Spondylosis without myelopathy or radiculopathy, lumbar region (principal)
CPT/HCPCS: 76000-TC-FY

== ENCOUNTER 2024-01-25 13:19 | Emergency (ER) | payer BC ==
[2024-01-25 13:31] VITALS: BP 158/76; PULSE 88; RESP 18; TEMP 97.8; BMI 25.4
[2024-01-25 14:03] LABS: EPI CELLS >36 /uL (0-25.1); HYALINE CASTS 0 /uL (0-3.1); URINE APPEARANCE CLEAR; URINE BACTERIA 9 /uL (0-1359); URINE BILIRUBIN NEGATIVE (NEGATIVE); URINE COLOR YELLOW; URINE GLUCOSE (UA) NEGATIVE (NEGATIVE); URINE KETONE NEGATIVE (NEGATIVE); URINE LEUK ESTERASE 2+ (NEGATIVE); URINE NITRITE NEGATIVE (NEGATIVE); URINE PROTEIN NEGATIVE (NEGATIVE); URINE RBC 88 /uL (0-23.9); URINE UROBILINOGEN 0.2 mg/dL (0.2-1.0); URINE WBC 46 /uL (0-25.8)
[2024-01-25] MEDS: morphine CARPU-JECT 2 MG/1 ML DISP.SYRIN IVPUSH ONE (14:05)
[2024-01-25] MEDS ORDERED: ACETAMINOPHEN INJECTION 100 ML IVPB ONE (14:28)
[2024-01-25 14:33] LABS: BASO % 0.9 % (0-2.0); EOS % 2.8 % (0-4.5); HEMATOCRIT 39.8 % (32.4-45.2); HEMOGLOBIN 13.1 GM/dL (10.7-15.3); LYMPH % 28.5 % (8-40); MCH 29.9 pg (25.7-33.7); MEAN CELL VOLUME 90.5 fl (80-96); MEAN PLT VOLUME 7.3 fl (7.5-11.1); MONO % 6.8 % (3.8-10.2); PLATELET COUNT 337 10^3/uL (134-434); RDW 12.2 % (11.6-15.6); WHITE BLOOD COUNT 6.6 K/mm3 (4.0-10.0)
[2024-01-25] MEDS: ACETAMINOPHEN 1000 MG/100 ML BAG IVPB ONE (14:37)
[2024-01-25 14:51] LABS: POTASSIUM 4.4 mmol/L (3.5-5.1)
[2024-01-25 14:53] LABS: CALCIUM 9.6 mg/dL (8.5-10.1)
[2024-01-25 14:54] LABS: ALBUMIN 3.7 g/dl (3.4-5.0); BLOOD UREA NITROGEN 14.2 mg/dL (7-18)
[2024-01-25 14:57] LABS: CREATININE 0.6 mg/dL (0.55-1.3)
[2024-01-25 14:58] LABS: BILIRUBIN,TOTAL 0.3 mg/dL (0.2-1)
[2024-01-25 14:59] LABS: TOT PROT 7.6 g/dl (6.4-8.2)
[2024-01-25] MEDS: SODIUM CHLORIDE 0.9% 500 ML INFUS.BAG IV ONE (15:16)
[2024-01-25] MEDS ORDERED: KETOROLAC TROMETHAMINE 30 MG/1 ML VIAL ONE (16:09)
[2024-01-25] MEDS: KETOROLAC TROMETHAMINE 30 MG/1 ML VIAL IVPUSH ONE (16:12)
== END 2024-01-25 16:50 | disposition home or self-care (01) ==
LOC: JER 13:19
PROC: 3E030NZ Introduction of Analgesics, Hypnotics, Sedatives into Peripheral Vein, Open Approach (ICD-10-PCS; principal; 2024-01-25)
PROC: 3E0303Z Introduction of Anti-inflammatory into Peripheral Vein, Open Approach (ICD-10-PCS; 2024-01-25)
PROC: 3E030NZ Introduction of Analgesics, Hypnotics, Sedatives into Peripheral Vein, Open Approach (ICD-10-PCS; 2024-01-25)
DX: R10.9 Unspecified abdominal pain (principal); R10.2 Pelvic and perineal pain; R30.0 Dysuria; R31.9 Hematuria, unspecified; R11.0 Nausea
CPT/HCPCS: 36415; 74176-TC; 80053; 81003; 85025; 86850; 86900; 86901; 87086; 99284-25; J0131

== ENCOUNTER 2024-03-05 04:06 | Day surgery (SDC) | payer BC ==
[2024-03-04 12:09] VITALS: BMI 25.4
[2024-03-05] MEDS ORDERED: DEXTROSE 5%-0.45% SALINE 1,000 ML IV SCH (14:15)
[2024-03-05] MEDS ORDERED: PROPOFOL 20 ML ONE (14:46)
[2024-03-05] MEDS ORDERED: MIDAZOLAM HCL 2 MG/2 ML SINGLE DOSE VIAL ONE (14:47)
[2024-03-05] MEDS ORDERED: FENTANYL CITRATE/PF 50 MCG/ML VIAL ONE ×5 (14:47→16:33)
[2024-03-05] MEDS: ceFAZolin SODIUM 1 GM VIAL IVPB ONE (15:05)
[2024-03-05] MEDS ORDERED: DEXAMETHASONE SOD PHOSPHATE 4 MG/1 ML VIAL ONE ×2 (15:31)
[2024-03-05] MEDS ORDERED: ceFAZolin SODIUM 1 GM VIAL ONE ×2 (15:31)
[2024-03-05] MEDS ORDERED: ONDANSETRON 4 MG/2 ML VIAL ONE ×2 (15:31)
[2024-03-05] MEDS ORDERED: oxyCODONE HCL 5 MG TABLET PO PRN (16:01)
[2024-03-05] MEDS ORDERED: PROMETHAZINE HCL 25 MG/1 ML VIAL IVPB PRN (16:01)
[2024-03-05] MEDS: ACETAMINOPHEN INJECTION 100 ML IVPB ONE (16:02)
[2024-03-05] MEDS: ACETAMINOPHEN 1000 MG/100 ML BAG IVPB ONE (16:02)
[2024-03-05] MEDS: KETOROLAC TROMETHAMINE 30 MG/1 ML VIAL IVPUSH ONE (16:03)
[2024-03-05] MEDS ORDERED: LACTATED RINGERS SOLUTION 1,000 ML IV SCH (16:15)
[2024-03-05 17:00] VITALS: RESP 18
[2024-03-05 18:15] VITALS: BP 135/66; PULSE 74; TEMP 97.7
== END 2024-03-05 18:20 | disposition home or self-care (01) ==
LOC: JASU-SURG 04:06
PROVIDERS: ATTEND Urology
PROC: 0TBD0ZZ Excision of Urethra, Open Approach (ICD-10-PCS; principal; 2024-03-05 15:15)
DX: N81.0 Urethrocele (principal)
CPT/HCPCS: 88305-TC; 94760; J0131

== ENCOUNTER 2024-07-01 14:05 | Emergency (ER) | payer BC ==
[2024-07-01 14:22] VITALS: RESP 17; TEMP 97.9; BMI 26.1
[2024-07-01] MEDS ORDERED: KETOROLAC TROMETHAMINE 30 MG/1 ML VIAL ONE (15:58)
[2024-07-01] MEDS ORDERED: METOCLOPRAMIDE HCL INJECTION 10 MG/2 ML VIAL ONE (15:59)
[2024-07-01] MEDS: SODIUM CHLORIDE 0.9% 500 ML INFUS.BAG IV ONE (16:15)
[2024-07-01] MEDS: KETOROLAC TROMETHAMINE 30 MG/1 ML VIAL IVPUSH ONE (16:16)
[2024-07-01] MEDS: METOCLOPRAMIDE HCL INJECTION 10 MG/2 ML VIAL IVPUSH ONE (16:16)
[2024-07-01 16:28] LABS: BASO % 0.7 % (0-2.0); EOS % 1.9 % (0-4.5); HEMOGLOBIN 13.8 GM/dL (10.7-15.3); LYMPH % 29.8 % (8-40); MCH 29.9 pg (25.7-33.7); MCHC 33.7 g/dl (32.0-36.0); MEAN CELL VOLUME 88.6 fl (80-96); MEAN PLT VOLUME 7.5 fl (7.5-11.1); MONO % 6.4 % (3.8-10.2); NEUT % 61.2 % (42.8-82.8); PLATELET COUNT 353 10^3/uL (134-434); RBC 4.63 M/mm3 (3.60-5.2); RDW 12.4 % (11.6-15.6)
[2024-07-01 16:55] LABS: POTASSIUM 4.3 mmol/L (3.5-5.1)
[2024-07-01 16:57] LABS: BLOOD UREA NITROGEN 15.4 mg/dL (7-18); CALCIUM 9.3 mg/dL (8.5-10.1)
[2024-07-01 17:00] LABS: CREATININE 0.6 mg/dL (0.55-1.3)
[2024-07-01 17:02] LABS: BILIRUBIN,TOTAL 0.3 mg/dL (0.2-1)
[2024-07-01 17:57] LABS: HIV INTERPRETATION NEGATIVE (NEGATIVE)
[2024-07-01] MEDS ORDERED: ACETAMINOPHEN 500 MG TABLET (FP) ONE (18:19)
[2024-07-01 18:21] VITALS: BP 151/74; PULSE 60
[2024-07-01] MEDS: ACETAMINOPHEN 500 MG TABLET (FP) PO ONE (18:30)
== END 2024-07-01 18:41 | disposition home or self-care (01) ==
LOC: JER 14:05
PROC: 3E033GC Introduction of Other Therapeutic Substance into Peripheral Vein, Percutaneous Approach (ICD-10-PCS; principal; 2024-07-01)
PROC: 3E0333Z Introduction of Anti-inflammatory into Peripheral Vein, Percutaneous Approach (ICD-10-PCS; 2024-07-01)
PROC: 3E033GC Introduction of Other Therapeutic Substance into Peripheral Vein, Percutaneous Approach (ICD-10-PCS; 2024-07-01)
DX: G44.209 Tension-type headache, unspecified, not intractable (principal)
CPT/HCPCS: 36415; 70450-TC; 80053; 85025; 86803; 87389; 99284-25

== ENCOUNTER 2025-01-22 06:43 | Day surgery (SDC) | payer BC ==
[2025-01-16 16:49] VITALS: BMI 25.5
[2025-01-22] MEDS ORDERED: oxyCODONE HCL 5 MG TABLET PO PRN ×2 (09:59)
[2025-01-22] MEDS ORDERED: ONDANSETRON 4 MG/2 ML VIAL IVPUSH PRN (09:59)
[2025-01-22] MEDS ORDERED: PROMETHAZINE HCL 25 MG/1 ML VIAL IVPB PRN (09:59)
[2025-01-22] MEDS ORDERED: BUPIVACAINE HCL/PF 0.25% (2.5MG/ML) 10 ML VIAL ONE (10:25)
[2025-01-22] MEDS: ceFAZolin SODIUM 1 GM VIAL IVPB ONE (11:13)
[2025-01-22] MEDS: BUPIVACAINE HCL/PF 0.25% (2.5MG/ML) 10 ML VIAL IJ ONE (11:15)
[2025-01-22] MEDS ORDERED: SUGAMMADEX SODIUM 200 MG/2 ML VIAL ONE (12:57)
[2025-01-22] MEDS: LACTATED RINGERS SOLUTION 1,000 ML IV SCH (13:55)
[2025-01-22 15:52] VITALS: RESP 18
[2025-01-22 17:05] VITALS: BP 116/58; PULSE 88; TEMP 97.6
== END 2025-01-22 17:30 | disposition home or self-care (01) ==
LOC: JASU-SURG 06:43
PROVIDERS: ATTEND Surgery
PROC: 8E0W4CZ Robotic Assisted Procedure of Trunk Region, Percutaneous Endoscopic Approach (ICD-10-PCS; 2025-01-22)
PROC: 0WUF4JZ Supplement Abdominal Wall with Synthetic Substitute, Percutaneous Endoscopic Approach (ICD-10-PCS; principal; 2025-01-22 10:00)
DX: K42.9 Umbilical hernia without obstruction or gangrene (principal)
CPT/HCPCS: 49591; S2900; 94760; C1781; J0131

== ENCOUNTER 2025-05-08 06:14 | Day surgery (SDC) | payer BC ==
[2025-05-06 08:45] VITALS: BMI 25.4
[2025-05-08 08:10] VITALS: RESP 18
[2025-05-08] MEDS ORDERED: LIDOCAINE HCL/PF 2% SDV 5ML VIAL ONE (08:13)
[2025-05-08] MEDS ORDERED: LIDOCAINE HCL/PF 1% SDV 5ML VIAL ONE (08:14)
[2025-05-08] MEDS ORDERED: BUPIVACAINE HCL/PF 0.75% 10 ML VIAL ONE (08:14)
[2025-05-08] MEDS ORDERED: DEXAMETHASONE SOD PHOSPHATE 10 MG/1 ML VIAL ONE (08:15)
[2025-05-08] MEDS ORDERED: ACETAMINOPHEN 500 MG TABLET (FP) PO PRN (09:08)
[2025-05-08] MEDS: DEXAMETHASONE SOD PHOSPHATE 10 MG/1 ML VIAL IVPUSH ONE (09:22)
[2025-05-08] MEDS: LIDOCAINE HCL 1% PRESERVATIVE FREE - 30ML VIAL IJ ONE ×2 (09:22)
[2025-05-08] MEDS: BUPIVACAINE HCL/PF 0.75% 10 ML VIAL NR ONE (09:22)
[2025-05-08] MEDS: LIDOCAINE HCL/PF 2% SDV 5ML VIAL INF ONE ×3 (09:22)
[2025-05-08 10:53] VITALS: BP 131/69; PULSE 71; TEMP 97.7
== END 2025-05-08 10:20 | disposition home or self-care (01) ==
LOC: JASU-SURG 06:14
PROVIDERS: ATTEND Pain Medicine Pain Medicine
PROC: 015B3ZZ Destruction of Lumbar Nerve, Percutaneous Approach (ICD-10-PCS; principal; 2025-05-08 09:15)
DX: M47.816 Spondylosis without myelopathy or radiculopathy, lumbar region (principal)
CPT/HCPCS: 76000-TC-FY; J1100